=== PATIENT | male | born 1945 | race Caucasian/White ===

== ENCOUNTER → 2019-12-21 11:34 | Outpatient (CLI) | payer MEDICARE, SELFPAY ==
[2019-12-21 11:38] LABS: Microscopic, Urine URINE MICROSCOPIC (MICROSCOPIC)
[2019-12-21 13:53] LABS: Appearance,Urine CLEAR (Clear); Bilirubin,Urine Negative (Negative); Blood, Urine Negative (Negative); Color,Urine YELLOW (Yellow); Glucose,Urine (UA) Negative (Negative); Ketones,Urine TRACE (Negative); Leukocyte Esterase,Urine Negative (Negative); Nitrate,Urine Negative (Negative); Protein,Urine Negative (Negative); Specific Gravity, Urine >= 1.030 (1.005-1.030)
== END ==
PROVIDERS: Visit Provider Specialist
DX: G31.84 Mild cognitive impairment of uncertain or unknown etiology (principal); Z87.440 Personal history of urinary (tract) infections
CPT/HCPCS: 81001